=== PATIENT | male | born 1980 | race Caucasian/White ===

== ENCOUNTER → 2018-10-15 | Outpatient (CLI) | payer SELFPAY ==
[~2018-10-15] MED LIST: CORTISPORIN OTI10 M1 OT; LORTAB 5/500 501 TAB PO; MOTRIN800 MG PO; NO HOME MEDICATIONS; NORCO 325 MG-7.1 TAB PO; VICODIN 5/5001 UDTAB PO
== END ==
LOC: COL.RAD 12:51
DX: M23.51 Chronic instability of knee, right knee (principal); M23.91 Unspecified internal derangement of right knee